=== PATIENT | male | born 1955 | race Caucasian/White ===

== ENCOUNTER 2021-07-28 18:29 | Inpatient (IN) ==
[2021-07-28] MEDS ORDERED: SODIUM CHLORIDE 0.9% 1,000 ML IV STA (19:16)
[2021-07-28 20:01] LABS: Basophils # 0.1 10*3/uL (0.0-0.2); Basophils % 0.3 % (0.0-0.8); Eosinophils % 0.1 % (0.00-10.9); Hematocrit 45.2 VOL% (42.0-52.0); Hemoglobin 14.5 GM/DL (14.0-18.0); Immature Granulocytes % 0.7 %; Immature Granulocytes Absolute 0.16 #; Lymphocytes # 1.6 10*3/uL (1.4-4.0); Lymphocytes % 6.7 % (21.2-54.2); Mean Corpuscular HGB Conc 32.1 GM/DL (32-36); Mean Corpuscular Volume 89.7 FL (87-102); Mean Platelet Volume 10.7 FL (9.6-12.0); Monocytes % 5.5 % (1.7-12.7); Neutrophils % 86.7 % (38.7-73.9); Platelet Count 217 T/CUMM (130-400); Red Blood Count 5.04 MC/CUMM (3.8-5.5); Red Cell Distribution Width 13.4 % (9.3-17.3); White Blood Count 23.4 T/CUMM (4-12)
[2021-07-28 20:15] LABS: Alanine Aminotransferase 25 U/L (16-61); Albumin 2.9 G/DL (3.4-5.0); Alkaline Phosphatase 93 U/L (45-117); Aspartate Amino Transferase 30 U/L (0-37); Blood Urea Nitrogen 33 MG/DL (7-18); CKMB % 1.4 %; Calcium 8.8 MG/DL (8.5-10.1); Carbon Dioxide 25 MMOL/L (21-32); Estimated Glom Filtration Rate 36 ML/MIN; Glucose 263 MG/DL (74-106); Osmolality,Calculated 292.5 MOS/KG (273-304); Potassium 4.7 MMOL/L (3.5-5.1); Sodium 139 MMOL/L (136-145); Total Protein 6.8 G/DL (6.4-8.2)
[2021-07-28] MEDS ORDERED: ONDANSETRON 4 MG/2 ML VIAL IV STA (20:15)
[2021-07-28] MEDS ORDERED: cefTRIAXone 1,000 MG in SODIUM CHLORIDE 0.9% 100 ML IV STA (20:15)
[2021-07-28] MEDS ORDERED: MORPHINE 2 MG/1 ML SYRINGE IV STA ×2 (20:15→21:22)
[2021-07-28 21:46] LABS: Band Neutrophils 2 % (0-10); Lymphocytes 6 % (20-55); Platelet Estimate Normal; Segmented Neutrophils 92 % (50-85); Total Cells Counted 100
[2021-07-29] MEDS ORDERED: GLUCAGON 1 MG VIAL IM PRN (00:20)
[2021-07-29] MEDS ORDERED: DEXTROSE 50% 25 GM/50 ML VIAL IV PRN (00:20)
[2021-07-29] MEDS ORDERED: guaiFENesin/DM ER 600-30 MG TABLET PO PRN (00:23)
[2021-07-29] MEDS ORDERED: ONDANSETRON 4 MG/2 ML VIAL IV PRN (00:23)
[2021-07-29] MEDS ORDERED: ALUMINUM/MAGNES/SIMETH MAX STR 30 ML UDCUP PO PRN (00:23)
[2021-07-29] MEDS: ALBUTEROL 2.5 MG/3 ML NEB RESP TX SCH ×4 (00:56→20:49)
[2021-07-29] MEDS: MORPHINE 2 MG/1 ML SYRINGE IV PRN ×5 (01:30→22:02)
[2021-07-29] MEDS: ENOXAPARIN 40 MG/0.4 ML SYRINGE SUBCUT SCH (02:58)
[2021-07-29] MEDS ORDERED: AZITHROMYCIN INJ 500 MG in SODIUM CHLORIDE 0.9% 250 ML IV SCH (04:00)
[2021-07-29 05:49] LABS: Basophils # 0.1 10*3/uL (0.0-0.2); Basophils % 0.5 % (0.0-0.8); Eosinophils # 0.3 10*3/uL (0.0-0.87); Eosinophils % 1.8 % (0.00-10.9); Hematocrit 42.1 VOL% (42.0-52.0); Hemoglobin 13.4 GM/DL (14.0-18.0); Immature Granulocytes % 0.8 %; Immature Granulocytes Absolute 0.14 #; Lymphocytes # 1.4 10*3/uL (1.4-4.0); Mean Corpuscular HGB Conc 31.8 GM/DL (32-36); Mean Corpuscular Volume 91.3 FL (87-102); Monocytes % 7.1 % (1.7-12.7); Neutrophils % 81.8 % (38.7-73.9); Platelet Count 193 T/CUMM (130-400); Red Blood Count 4.61 MC/CUMM (3.8-5.5); Red Cell Distribution Width 13.5 % (9.3-17.3); White Blood Count 17.9 T/CUMM (4-12)
[2021-07-29 06:18] LABS: Bilirubin,Urine Negative (Negative); Blood, Urine Negative (Negative); Glucose,Urine (UA) 50 mg/dL (Negative); Ketones,Urine 5 mg/dL (Negative); Mucus,Urine Occasional /LPF (Occasional); Nitrite,Urine Negative (Negative); Protein,Urine Negative; RBC,Urine 1 /HPF (0-4); Urine Appearance CLEAR (Clear); Urine Color Yellow (Yellow); Urine Specific Gravity 1.018 (1.001-1.035); Urine Urobilinogen < 2.0 EU/DL (0.2-1.0)
[2021-07-29 06:21] LABS: Calcium 8.2 MG/DL (8.5-10.1); Osmolality,Calculated 294.1 MOS/KG (273-304); Potassium 4.4 MMOL/L (3.5-5.1); Risk Ratio 3.08
[2021-07-29] MEDS ORDERED: ceFAZolin 2,000 MG/50 ML DUPLEX IV ONE (06:58)
[2021-07-29 07:20] LABS: ABG Base Excess 0.5 MMOL/L (-2.5-2.5); ABG HCO3 25.7 MMOL/L (20-26); ABG Oxygen Saturation 96.1 % (95-100); ABG PCO2 43.2 MM HG (35-48); ABG PH 7.392 (7.35-7.45); ABG PO2 84.9 MM HG (80-95)
[2021-07-29] MEDS: INSULIN REGULAR 100 UNIT/ML SUBCUT SCH ×4 (09:30→21:19)
[2021-07-29] MEDS: lisinopriL 10 MG TABLET PO SCH (09:34)
[2021-07-29] MEDS: carvediloL 6.25 MG TABLET PO SCH ×2 (09:34→21:19)
[2021-07-29] MEDS: DOCUSATE SODIUM 100 MG CAPSULE PO SCH ×2 (09:38→21:19)
[2021-07-29] MEDS: ASPIRIN EC 81 MG TABLET PO SCH (09:38)
[2021-07-29] MEDS: PANTOPRAZOLE 40 MG TABLET PO SCH (09:39)
[2021-07-29] MEDS: INSULIN GLARGINE 100 UNIT/ML SUBCUT SCH (09:39)
[2021-07-29] MEDS: ATORVASTATIN 40 MG TABLET PO SCH (09:39)
[2021-07-29] MEDS ORDERED: MIDAZOLAM 2 MG/2 ML VIAL ONE (10:20)
[2021-07-29] MEDS ORDERED: fentaNYL 100 MCG/2 ML VIAL ONE (10:20)
[2021-07-29] MEDS ORDERED: ROPIVACAINE 0.5% 30 ML VIAL ONE (10:23)
[2021-07-29] MEDS ORDERED: MAGNESIUM HYDROXIDE SUSP 30 ML UDCUP PO PRN (10:37)
[2021-07-29] MEDS ORDERED: diphenhydrAMINE CAP 25 MG CAPSULE PO PRN (10:37)
[2021-07-29] MEDS ORDERED: BISACODYL 10 MG SUPP RECTAL PRN (10:37)
[2021-07-29] MEDS ORDERED: LACTULOSE 20 GM/30 ML UDCUP PO PRN (10:37)
[2021-07-29] MEDS ORDERED: MORPHINE 2 MG/1 ML SYRINGE IV PRN (10:55)
[2021-07-29] MEDS ORDERED: LACTATED RINGERS 1,000 ML IV SCH (11:00)
[2021-07-29] MEDS ORDERED: ePHEDrine 50 MG/ML VIAL ONE (11:15)
[2021-07-29] MEDS ORDERED: SUCCINYLCHOLINE 200 MG/10 ML VIAL ONE (11:52)
[2021-07-29] MEDS ORDERED: propofoL 200 MG/20 ML VIAL IV ONE (11:52)
[2021-07-29] MEDS ORDERED: LIDOCAINE 2% 5 ML VIAL ONE (11:52)
[2021-07-29] MEDS ORDERED: ROCURONIUM 50 MG/5 ML VIAL IV ONE (11:52)
[2021-07-29] MEDS ORDERED: PHENYLEPHRINE 1 MG/10 ML SYRINGE IV ONE (11:52)
[2021-07-29] MEDS ORDERED: SEVOFLURANE 1 UNIT/15 MINUTE INH ONE (11:53)
[2021-07-29] MEDS ORDERED: NEOSTIGMINE 10 MG/10 ML VIAL ONE (11:59)
[2021-07-29] MEDS: CLINDAMYCIN INJ 600 MG/50 ML PREMIX IV SCH ×2 (16:47→23:21)
[2021-07-29] MEDS: SODIUM CHLORIDE 0.9% 1,000 ML IV SCH (16:47)
[2021-07-29] MEDS ORDERED: cefTRIAXone 1,000 MG in SODIUM CHLORIDE 0.9% 100 ML IV SCH (20:00)
[2021-07-29] MEDS ORDERED: INSULIN REGULAR 100 UNIT/ML SUBCUT SCH (21:00)
[2021-07-30] MEDS: ENOXAPARIN 40 MG/0.4 ML SYRINGE SUBCUT SCH ×2 (00:22→23:35)
[2021-07-30] MEDS: ALBUTEROL 2.5 MG/3 ML NEB RESP TX SCH ×4 (01:05→20:17)
[2021-07-30 04:57] LABS: Basophils # 0.1 10*3/uL (0.0-0.2); Basophils % 0.6 % (0.0-0.8); Eosinophils # 0.4 10*3/uL (0.0-0.87); Eosinophils % 2.4 % (0.00-10.9); Hematocrit 38.2 VOL% (42.0-52.0); Hemoglobin 11.8 GM/DL (14.0-18.0); Immature Granulocytes % 0.7 %; Lymphocytes # 1.4 10*3/uL (1.4-4.0); Lymphocytes % 9.5 % (21.2-54.2); Mean Corpuscular HGB Conc 30.9 GM/DL (32-36); Mean Corpuscular Volume 92.9 FL (87-102); Mean Platelet Volume 10.9 FL (9.6-12.0); Monocytes % 9.9 % (1.7-12.7); Neutrophils % 76.9 % (38.7-73.9); Platelet Count 179 T/CUMM (130-400); Red Blood Count 4.11 MC/CUMM (3.8-5.5); Red Cell Distribution Width 13.4 % (9.3-17.3); White Blood Count 14.9 T/CUMM (4-12)
[2021-07-30 05:06] LABS: Calcium 7.7 MG/DL (8.5-10.1); Osmolality,Calculated 287.7 MOS/KG (273-304); Potassium 4.6 MMOL/L (3.5-5.1)
[2021-07-30] MEDS: CLINDAMYCIN INJ 600 MG/50 ML PREMIX IV SCH ×3 (06:04→22:02)
[2021-07-30] MEDS: SODIUM CHLORIDE 0.9% 1,000 ML IV SCH ×2 (06:16→20:36)
[2021-07-30] MEDS: INSULIN GLARGINE 100 UNIT/ML SUBCUT SCH (08:43)
[2021-07-30] MEDS: INSULIN REGULAR 100 UNIT/ML SUBCUT SCH ×4 (08:44→20:35)
[2021-07-30] MEDS: ASPIRIN EC 81 MG TABLET PO SCH (08:45)
[2021-07-30] MEDS: ATORVASTATIN 40 MG TABLET PO SCH (08:45)
[2021-07-30] MEDS: PANTOPRAZOLE 40 MG TABLET PO SCH (08:45)
[2021-07-30] MEDS: lisinopriL 10 MG TABLET PO SCH (08:45)
[2021-07-30] MEDS: DOCUSATE SODIUM 100 MG CAPSULE PO SCH ×2 (08:45→20:36)
[2021-07-30] MEDS: carvediloL 6.25 MG TABLET PO SCH ×2 (08:45→20:36)
[2021-07-30] MEDS: MORPHINE 2 MG/1 ML SYRINGE IV PRN (10:44)
[2021-07-30] MEDS: TAMSULOSIN 0.4 MG CAPSULE PO SCH (11:49)
[2021-07-31] MEDS: ALBUTEROL 2.5 MG/3 ML NEB RESP TX SCH ×5 (01:20→23:56)
[2021-07-31 06:00] LABS: Basophils # 0.1 10*3/uL (0.0-0.2); Basophils % 0.5 % (0.0-0.8); Eosinophils # 0.4 10*3/uL (0.0-0.87); Eosinophils % 3.4 % (0.00-10.9); Hematocrit 35.7 VOL% (42.0-52.0); Hemoglobin 11.3 GM/DL (14.0-18.0); Immature Granulocytes % 1.2 %; Immature Granulocytes Absolute 0.14 #; Lymphocytes # 1.2 10*3/uL (1.4-4.0); Lymphocytes % 10.8 % (21.2-54.2); Mean Corpuscular HGB Conc 31.7 GM/DL (32-36); Mean Corpuscular Volume 93.5 FL (87-102); Monocytes % 13.7 % (1.7-12.7); Neutrophils % 70.4 % (38.7-73.9); Platelet Count 168 T/CUMM (130-400); Red Blood Count 3.82 MC/CUMM (3.8-5.5); Red Cell Distribution Width 13.2 % (9.3-17.3); White Blood Count 11.4 T/CUMM (4-12)
[2021-07-31] MEDS: CLINDAMYCIN INJ 600 MG/50 ML PREMIX IV SCH ×3 (06:12→22:50)
[2021-07-31 06:20] LABS: Calcium 7.9 MG/DL (8.5-10.1); Osmolality,Calculated 286.5 MOS/KG (273-304)
[2021-07-31] MEDS: DOCUSATE SODIUM 100 MG CAPSULE PO SCH ×2 (09:38→20:05)
[2021-07-31] MEDS: TAMSULOSIN 0.4 MG CAPSULE PO SCH (09:38)
[2021-07-31] MEDS: lisinopriL 10 MG TABLET PO SCH (09:39)
[2021-07-31] MEDS: carvediloL 6.25 MG TABLET PO SCH ×2 (09:39→20:05)
[2021-07-31] MEDS: ASPIRIN EC 81 MG TABLET PO SCH (09:39)
[2021-07-31] MEDS: INSULIN REGULAR 100 UNIT/ML SUBCUT SCH ×4 (09:39→20:05)
[2021-07-31] MEDS: ATORVASTATIN 40 MG TABLET PO SCH (09:39)
[2021-07-31] MEDS: INSULIN GLARGINE 100 UNIT/ML SUBCUT SCH (09:39)
[2021-07-31] MEDS: SODIUM CHLORIDE 0.9% 1,000 ML IV SCH ×2 (09:46→14:18)
[2021-07-31] MEDS: PANTOPRAZOLE 40 MG TABLET PO SCH (09:57)
[2021-07-31] MEDS ORDERED: SODIUM PHOSPHATE ENEMA 133 ML BOTTLE RECTAL ONE (13:21)
[2021-07-31] MEDS: LACTULOSE 20 GM/30 ML UDCUP PO SCH ×2 (13:58→20:05)
[2021-07-31] MEDS: ZALEPLON 5 MG CAPSULE PO PRN (20:05)
[2021-08-01] MEDS: ENOXAPARIN 40 MG/0.4 ML SYRINGE SUBCUT SCH ×2 (00:18→23:30)
[2021-08-01] MEDS: SODIUM CHLORIDE 0.9% 1,000 ML IV SCH ×3 (02:18→17:13)
[2021-08-01] MEDS: LACTULOSE 20 GM/30 ML UDCUP PO SCH ×4 (03:27→21:35)
[2021-08-01] MEDS: CLINDAMYCIN INJ 600 MG/50 ML PREMIX IV SCH ×3 (06:08→23:28)
[2021-08-01] MEDS: ALBUTEROL 2.5 MG/3 ML NEB RESP TX SCH ×3 (07:33→19:13)
[2021-08-01 07:40] LABS: Basophils # 0.1 10*3/uL (0.0-0.2); Basophils % 0.5 % (0.0-0.8); Eosinophils # 0.4 10*3/uL (0.0-0.87); Hematocrit 36.5 VOL% (42.0-52.0); Hemoglobin 11.5 GM/DL (14.0-18.0); Immature Granulocytes % 1.5 %; Immature Granulocytes Absolute 0.15 #; Lymphocytes # 1.5 10*3/uL (1.4-4.0); Lymphocytes % 15.1 % (21.2-54.2); Mean Corpuscular HGB Conc 31.5 GM/DL (32-36); Mean Corpuscular Volume 92.2 FL (87-102); Mean Platelet Volume 10.8 FL (9.6-12.0); Monocytes % 12.9 % (1.7-12.7); Platelet Count 215 T/CUMM (130-400); Red Blood Count 3.96 MC/CUMM (3.8-5.5); Red Cell Distribution Width 13.1 % (9.3-17.3); White Blood Count 10.1 T/CUMM (4-12)
[2021-08-01 08:05] LABS: Calcium 7.7 MG/DL (8.5-10.1); Osmolality,Calculated 286.3 MOS/KG (273-304); Potassium 3.8 MMOL/L (3.5-5.1)
[2021-08-01] MEDS: carvediloL 6.25 MG TABLET PO SCH ×2 (09:03→21:36)
[2021-08-01] MEDS: INSULIN GLARGINE 100 UNIT/ML SUBCUT SCH (09:04)
[2021-08-01] MEDS: ASPIRIN EC 81 MG TABLET PO SCH (09:04)
[2021-08-01] MEDS: PANTOPRAZOLE 40 MG TABLET PO SCH (09:04)
[2021-08-01] MEDS: TAMSULOSIN 0.4 MG CAPSULE PO SCH (09:04)
[2021-08-01] MEDS: ATORVASTATIN 40 MG TABLET PO SCH (09:04)
[2021-08-01] MEDS: lisinopriL 10 MG TABLET PO SCH (09:04)
[2021-08-01] MEDS: INSULIN REGULAR 100 UNIT/ML SUBCUT SCH ×4 (09:05→22:53)
[2021-08-01] MEDS: DOCUSATE SODIUM 100 MG CAPSULE PO SCH ×2 (11:52→21:37)
[2021-08-01] MEDS: ZALEPLON 5 MG CAPSULE PO PRN (21:36)
[2021-08-02] MEDS: ALBUTEROL 2.5 MG/3 ML NEB RESP TX SCH ×4 (00:41→19:05)
[2021-08-02] MEDS: LACTULOSE 20 GM/30 ML UDCUP PO SCH ×4 (02:41→20:57)
[2021-08-02 05:16] LABS: Basophils # 0.1 10*3/uL (0.0-0.2); Basophils % 0.6 % (0.0-0.8); Eosinophils # 0.4 10*3/uL (0.0-0.87); Eosinophils % 4.9 % (0.00-10.9); Hematocrit 34.6 VOL% (42.0-52.0); Immature Granulocytes % 1.6 %; Immature Granulocytes Absolute 0.13 #; Lymphocytes # 1.3 10*3/uL (1.4-4.0); Lymphocytes % 16.4 % (21.2-54.2); Mean Corpuscular HGB Conc 31.8 GM/DL (32-36); Mean Corpuscular Volume 90.8 FL (87-102); Mean Platelet Volume 10.4 FL (9.6-12.0); Monocytes % 12.1 % (1.7-12.7); Neutrophils % 64.4 % (38.7-73.9); Platelet Count 237 T/CUMM (130-400); Red Blood Count 3.81 MC/CUMM (3.8-5.5); Red Cell Distribution Width 13.2 % (9.3-17.3); White Blood Count 8.1 T/CUMM (4-12)
[2021-08-02 05:38] LABS: Calcium 7.9 MG/DL (8.5-10.1); Potassium 3.6 MMOL/L (3.5-5.1)
[2021-08-02] MEDS: SODIUM CHLORIDE 0.9% 1,000 ML IV SCH (06:24)
[2021-08-02] MEDS: CLINDAMYCIN INJ 600 MG/50 ML PREMIX IV SCH (06:24)
[2021-08-02] MEDS: INSULIN REGULAR 100 UNIT/ML SUBCUT SCH ×4 (08:25→20:56)
[2021-08-02] MEDS ORDERED: FUROSEMIDE 40 MG/4 ML VIAL IV ONE (10:00)
[2021-08-02] MEDS: TAMSULOSIN 0.4 MG CAPSULE PO SCH (10:02)
[2021-08-02] MEDS: ASPIRIN EC 81 MG TABLET PO SCH (10:02)
[2021-08-02] MEDS: lisinopriL 10 MG TABLET PO SCH (10:02)
[2021-08-02] MEDS: carvediloL 6.25 MG TABLET PO SCH ×2 (10:02→20:56)
[2021-08-02] MEDS: ATORVASTATIN 40 MG TABLET PO SCH (10:02)
[2021-08-02] MEDS: LEVOFLOXACIN 750 MG TABLET PO SCH (10:47)
[2021-08-02] MEDS: PANTOPRAZOLE 40 MG TABLET PO SCH (10:48)
[2021-08-02] MEDS: DOCUSATE SODIUM 100 MG CAPSULE PO SCH ×3 (10:56→21:00)
[2021-08-02] MEDS: INSULIN GLARGINE 100 UNIT/ML SUBCUT SCH (10:56)
[2021-08-02] MEDS: FUROSEMIDE 40 MG/4 ML VIAL IV SCH (17:36)
[2021-08-02] MEDS: ZALEPLON 5 MG CAPSULE PO PRN (20:56)
[2021-08-02] MEDS ORDERED: ESCITALOPRAM 10 MG TABLET PO SCH (21:00)
[2021-08-03] MEDS: ENOXAPARIN 40 MG/0.4 ML SYRINGE SUBCUT SCH (00:08)
[2021-08-03] MEDS: LACTULOSE 20 GM/30 ML UDCUP PO SCH ×3 (00:33→12:41)
[2021-08-03] MEDS: ALBUTEROL 2.5 MG/3 ML NEB RESP TX SCH ×3 (00:43→13:32)
[2021-08-03 05:25] LABS: Basophils # 0.1 10*3/uL (0.0-0.2); Basophils % 0.7 % (0.0-0.8); Eosinophils # 0.3 10*3/uL (0.0-0.87); Eosinophils % 3.1 % (0.00-10.9); Hematocrit 35.8 VOL% (42.0-52.0); Hemoglobin 11.7 GM/DL (14.0-18.0); Immature Granulocytes % 1.8 %; Immature Granulocytes Absolute 0.18 #; Lymphocytes # 1.3 10*3/uL (1.4-4.0); Lymphocytes % 13.4 % (21.2-54.2); Mean Corpuscular HGB Conc 32.7 GM/DL (32-36); Mean Corpuscular Volume 89.9 FL (87-102); Mean Platelet Volume 10.8 FL (9.6-12.0); Monocytes % 11.2 % (1.7-12.7); Neutrophils % 69.8 % (38.7-73.9); Platelet Count 287 T/CUMM (130-400); Red Blood Count 3.98 MC/CUMM (3.8-5.5); Red Cell Distribution Width 13.1 % (9.3-17.3)
[2021-08-03 05:49] LABS: Calcium 8.2 MG/DL (8.5-10.1); Potassium 3.7 MMOL/L (3.5-5.1)
[2021-08-03] MEDS: ATORVASTATIN 40 MG TABLET PO SCH (08:42)
[2021-08-03] MEDS: TAMSULOSIN 0.4 MG CAPSULE PO SCH (08:42)
[2021-08-03] MEDS: PANTOPRAZOLE 40 MG TABLET PO SCH (08:42)
[2021-08-03] MEDS: carvediloL 6.25 MG TABLET PO SCH (08:42)
[2021-08-03] MEDS: LEVOFLOXACIN 750 MG TABLET PO SCH (08:42)
[2021-08-03] MEDS: DOCUSATE SODIUM 100 MG CAPSULE PO SCH (08:43)
[2021-08-03] MEDS: INSULIN GLARGINE 100 UNIT/ML SUBCUT SCH (08:43)
[2021-08-03] MEDS: FUROSEMIDE 40 MG/4 ML VIAL IV SCH (08:43)
[2021-08-03] MEDS: lisinopriL 10 MG TABLET PO SCH (08:43)
[2021-08-03] MEDS: INSULIN REGULAR 100 UNIT/ML SUBCUT SCH ×2 (08:43→12:41)
[2021-08-03] MEDS: ASPIRIN EC 81 MG TABLET PO SCH (08:43)
[2021-08-03 12:18] VITALS: BP 118/52
== END 2021-08-03 15:50 | DRG 521 ==
LOC: EDUNIT# → EDBD → N.ED 18:29 → N.EDINP 07-29 00:20 → SUATTDRO 07-29 00:20 → N.3E 07-29 00:57
PROVIDERS: ADMIT Emergency Medicine; ATTEND Internal Medicine